=== PATIENT | male | born 1940 | race Caucasian/White ===

== ENCOUNTER → 2021-08-01 | Outpatient (CLI) | payer MEDICARE, OTHER | LOC: M PLAIMG 13:02 | PROVIDERS: ATTEND Nurse Practitioner Family | DX: R42 Dizziness and giddiness (principal); I67.82 Cerebral ischemia; G32.81 Cerebellar ataxia in diseases classified elsewhere ==

== ENCOUNTER → 2022-09-27 | Outpatient (CLI) | payer MEDICARE | LOC: M CARPUL 12:38 | PROVIDERS: ATTEND Nurse Practitioner Family | DX: I35.0 Nonrheumatic aortic (valve) stenosis (principal) ==

== ENCOUNTER → 2023-12-18 | Outpatient (REF) | LOC: M PLAIMG 14:06 | PROVIDERS: ATTEND Internal Medicine | DX: R06.02 Shortness of breath (principal) ==